=== PATIENT | male | born 1995 | race Caucasian/White ===

== ENCOUNTER 2017-11-05 19:36 | Emergency (ER) | payer BC, MEDICAID, OTHER ==
[2017-11-05 19:46] VITALS: BP 141/81
--- NOTE | 2017-11-05 19:58 | UC ---
Skin Complaint HPI - HPI Summary HPI Summary: Pt is a 22 y/o M c/o rash onset ~2 days ago. The rash is red with an associated pain which is rated a 2/10 and described as burning. Pain is alleviated by inactivity and worsened by exercise/activity and change in position. Rash is located on bilateral forearms, abdomen, forehead. NKDA. - History of Current Complaint Chief Complaint: UCRash Stated Complaint: RASH Hx Obtained From: Patient Onset/Duration: Sudden Onset, Lasting Days, Still Present Skin Exposure Onset/Duration: Days Ago Current Severity: Mild Pain Intensity: 2 Pain Scale Used: 0-10 Numeric Location: Diffuse - Bilat arms, forehead, chest Character: Pain, Redness Aggravating Factor(s): Other - exercise/activity, change in position Alleviating Factor(s): Other - Inactivity Associated Signs & Symptoms: Positive: Rash. Negative: Fever - Allergy/Home Medications Allergies/Adverse Reactions: Allergies Allergy/AdvReac Type Severity Reaction Status Date / Time No Known Allergies Allergy Verified 11/05/17 19:46 Home Medications: Home Medications Acetaminophen TAB* [Tylenol TAB*] 650 mg PO Q6HR PRN 11/05/17 [History Confirmed 11/05/17] Review of Systems Constitutional: Other - NEG: fever Skin: Rash All Other Systems Reviewed And Are Negative: Yes PMH/Surg Hx/FS Hx/Imm Hx Endocrine History: Other Other Endocrine History: NEG: DM Cardiovascular History: Other Other Cardiovascular History: NEG: CAD, HTN - Surgical History Surgical History: Yes Surgery Procedure, Year, and Place: appy - Family History Known Family History: Negative: Cardiac Disease, Hypertension, Diabetes - Social History Occupation: Unemployed Lives: With Family Alcohol Use: None Substance Use Type: None Smoking Status (MU): Never Smoked Tobacco - Immunization History Vaccination Up to Date: Yes Physical Exam - Summary Physical Exam Summary: Appearance: Well-appearing, Well-nourished Skin: Diffuse erythmatous rash with linear patterns and associated blisters on arms, forehead, chest. Eyes: Normal, PERRL, EOMI, sclera anicteric ENT: Normal Neck: Supple, nontender Respiratory: Clear to auscultation Cardiovascular: S1, S2, no murmur, no rub, no gallop Abdomen: Soft, nontender, no organomegaly Bowel sounds: Present Musculoskeletal: Normal, Strength/ROM Intact, no edema, pulses symmetrical Neurological: Normal, A&Ox3, cranial nerves II-XII WNL, follows commands, gait not tested, sensation intact to pin and light touch Psychiatric: affect normal, behavior appropriate, dressed appropriately, judgment intact Triage Information Reviewed: Yes Vital Signs: Initial Vital Signs Temp 99.4 F 11/05/17 19:41 Pulse 83 11/05/17 19:41 Resp 14 11/05/17 19:41 BP 141/81 11/05/17 19:41 Pulse Ox 100 11/05/17 19:41 Vital Signs Reviewed: Yes Course/Dx - Course Course Of Treatment: Provider saw pt and stated that his rash looked like it was caused by poison addie. Pt will be D/C home with prednisone to treat his Dx of contact dermatits secondary to poison addie exposure. - Differential Diagnoses - Skin Complaint Differential Diagnoses: Contact Dermatitis - Diagnoses Provider Diagnoses: contact dermatits - secondary to poison addie Discharge - Sign-Out/Discharge Documenting (check all that apply): Patient Departure All imaging exams completed and their final reports reviewed: No Studies - Discharge Plan Condition: Stable Disposition: HOME Prescriptions: predniSONE [Prednisone 20 MG TAB] 40 mg PO DAILY #14 tablet Patient Education Materials: Poison Addie (ED) Referrals: [facility] [place] PHYS[facility]IAN REFERRAL [Outside] - 2 Days Additional Instructions: RETURN TO THE EMERGENCY DEPARTMENT FOR CHANGING OR WORSENING SYMPTOMS - Attestation Statements Document Initiated by Scribe: Yes Documenting Scribe: Bryce Gautam Provider For Whom Scribe is Documenting (Include Credential): Yoseph Choudhary MD. Scribe Attestation: Bryce Mariee, scribed for Yoseph Choudhary MD. on 11/05/17 at 2005.
== END 2017-11-05 19:58 | disposition home or self-care (01) ==
LOC: UCEAST 19:36
DX: L23.7 Allergic contact dermatitis due to plants, except food (principal)
CPT/HCPCS: 99212; G0463

== ENCOUNTER 2018-05-13 14:57 | Emergency (ER) | payer OTHER ==
[2018-05-13 15:05] VITALS: BP 142/88
--- NOTE | 2018-05-13 15:14 | ED ---
Throat Pain/Nasal Congestion - HPI Summary HPI Summary: 22-year-old male presents with sore throat for the past day. He states he has history of strep and it feels similar. he admits to sinus congestion. No postnasal drip. No cough. No ear pain or headache. He has been taking ibuprofen for swelling. He states he is not able to eat anything hard as hard time swallowing. No chest pressure or shortness of breath. - History of Current Complaint Chief Complaint: UCRespiratory Time Seen by Provider: 05/13/18 15:09 - Allergies/Home Medications Allergies/Adverse Reactions: Allergies Allergy/AdvReac Type Severity Reaction Status Date / Time No Known Allergies Allergy Verified 05/13/18 15:05 PMH/Surg Hx/FS Hx/Imm Hx Endocrine/Hematology History: Denies: Hx Anticoagulant Therapy Respiratory History: Denies: Hx Asthma - Surgical History Surgery Procedure, Year, and Place: appy Infectious Disease History: No Infectious Disease History: Denies: Hx Clostridium Difficile, Hx Hepatitis, Hx Human Immunodeficiency Virus (HIV), Hx of Known/Suspected MRSA, Hx Shingles, Hx Tuberculosis, Hx Known/ Suspected VRE, Hx Known/Suspected VRSA, History Other Infectious Disease, Traveled Outside the in Last 30 Days - Family History Known Family History: Negative: Cardiac Disease, Hypertension, Diabetes - Social History Alcohol Use: None Substance Use Type: Reports: None Smoking Status (MU): Never Smoked Tobacco Review of Systems Positive: Fever Positive: Sore Throat, Nasal Discharge Negative: Chest Pain Negative: Shortness Of Breath, Cough All Other Systems Reviewed And Are Negative: Yes Physical Exam Triage Information Reviewed: Yes Vital Signs On Initial Exam: Initial Vitals Temp Pulse Resp BP Pulse Ox 97.7 F 95 18 142/88 97 05/13/18 15:02 05/13/18 15:02 05/13/18 15:02 05/13/18 15:02 05/13/18 15:02 Vital Signs Reviewed: Yes Appearance: Positive: Well-Appearing Skin: Positive: Warm, Dry Head/Face: Positive: Normal Head/Face Inspection Eyes: Positive: Normal, EOMI, DOMINIQUE, Conjunctiva Clear ENT: Positive: Pharyngeal erythema, TMs normal, Tonsillar swelling, Tonsillar exudate, Uvula midline, Other - soft palate symmetric. Negative: Trismus, Muffled voice Neck: Positive: Supple, Nontender, No Lymphadenopathy Respiratory/Lung Sounds: Positive: Clear to Auscultation, Breath Sounds Present Cardiovascular: Positive: Normal, RRR Abdomen Description: Positive: Nontender, Soft Bowel Sounds: Positive: Present Musculoskeletal: Positive: Normal Neurological: Positive: Normal Psychiatric: Positive: Normal Diagnostics - Vital Signs Vital Signs Temp Pulse Resp BP Pulse Ox 05/13/18 15:02 97.7 F 95 18 142/88 97 - Laboratory Lab Statement: Any lab studies that have been ordered have been reviewed, and results considered in the medical decision making process. EENT Course/Dx - Course Course Of Treatment: 22-year-old male presents with sore throat for the past day. He states he has history of strep and it feels similar. he admits to sinus congestion. No postnasal drip. No cough. No ear pain or headache. He has been taking ibuprofen for swelling. He states he is not able to eat anything hard as hard time swallowing. No chest pressure or shortness of breath. On exam has erythematous pharynx. Uvula midline. Soft palate symmetric. Strep neg. will treat supportively with magic mouth wash and steroid. told establish care with primary to follow up with as blood pressure is elevated at this visit. patient understand and agrees with plan. - Differential Diagnoses Differential Diagnoses: Pharyngitis, Tonsilitis, URI/Bronchitis - Diagnoses Provider Diagnoses: Pharyngitis Discharge - Sign-Out/Discharge Documenting (check all that apply): Patient Departure All imaging exams completed and their final reports reviewed: No Studies - Discharge Plan Condition: Good Disposition: HOME Prescriptions: Magic Mouth Was-MATTHEW/MAAL/LIDO* 5 ml SWISH SPIT QID #100 ml Patient Education Materials: Pharyngitis (ED) Forms: *Work Release Referrals: [facility] [place] PHYS[facility]IAN REFERRAL [Outside] Additional Instructions: Magic mouthwash 5ml swish and spit can use 4x a day Take Tylenol or ibuprofen for pain every 6 hours Can gargle salt water Can use cough drops or products such as cloraseptic spray Establish care with primary care physician Return to ED if develop any new or worsening symptoms - Billing Disposition and Condition Condition: GOOD Disposition: Home - Attestation Statements Provider Attestation: I was available for consult. This patient was seen by the RAFAELA. The patient was not presented to, seen by, or examined by me. -Coy
== END 2018-05-13 15:30 | disposition home or self-care (01) ==
LOC: UCEAST 14:57
DX: J02.9 Acute pharyngitis, unspecified (principal)
CPT/HCPCS: 87651; 99212; G0463